=== PATIENT | female | born 2000 | race African-American/Black ===

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

== ENCOUNTER 2021-08-05 02:29 | Emergency (ER) | payer OTHER ==
[2021-08-05 02:54] VITALS: TEMP 98.1; BMI 19.3
[2021-08-05 03:49] VITALS: BP 112/78; PULSE 70
== END 2021-08-05 04:25 | disposition left against medical advice (07) ==
LOC: JER 02:29
DX: R06.00 Dyspnea, unspecified (principal)
CPT/HCPCS: 93005; 93010; 99284-25